=== PATIENT | female | born 1980 | race Caucasian/White ===

== ENCOUNTER 2023-12-15 15:30 | Emergency (ER) | payer BC ==
[2023-12-15] MEDS: Sodium Chloride 0.9% 1,000 ML IV STA (16:04)
[2023-12-15] MEDS: Promethazine 25 MG/ML SDV IM STA (16:04)
[2023-12-15] MEDS: Ketorolac 30 MG/ML SDV IVPUSH STA (16:04)
[2023-12-15 16:22] LABS: BASOPHILS ABSOLUTE AUTO 0.07 K/uL (0.00-0.20); BASOPHILS PERCENT AUTO 0.5 % (0.0-1.0); EOSINOPHILS ABSOLUTE AUTO 0.24 K/uL (0.00-0.45); EOSINOPHILS PERCENT AUTO 1.6 % (0.0-6.0); HEMATOCRIT 38.5 % (37.0-47.0); HEMOGLOBIN 12.9 g/dL (12.0-16.0); IMMATURE GRAN ABSOLUTE AUTO 0.06 K/uL (0.00-0.05); IMMATURE GRAN PERCENT AUTO 0.4 % (0.0-0.4); LYMPHOCYTES ABSOLUTE AUTO 1.34 K/uL (1.00-4.80); LYMPHOCYTES PERCENT AUTO 8.7 % (24.0-44.0); MEAN CORPUSCULAR HEMOGLOBIN 27.4 pg (28.0-32.0); MEAN CORPUSCULAR HGB CONC 33.5 g/dL (32.0-36.0); MEAN CORPUSCULAR VOLUME 81.7 fL (83.0-99.0); MEAN PLATELET VOLUME 10.3 fL (9.4-12.3); MONOCYTES ABSOLUTE AUTO 0.96 K/uL (0.00-0.80); MONOCYTES PERCENT AUTO 6.2 % (0.0-8.0); NEUTROPHILS PERCENT AUTO 82.6 % (41.0-71.0); PLATELET COUNT,PLT 368 K/uL (150-400); RED BLOOD CELL COUNT 4.71 M/uL (4.10-5.30); WHITE BLOOD CELL COUNT,WBC 15.47 K/uL (3.9-11.3)
[2023-12-15 16:35] LABS: INR 1.04 (0.86-1.11)
[2023-12-15 16:48] LABS: BILIRUBIN TOTAL 0.7 mg/dL (0.2-1.0); CALCIUM 9.4 mg/dL (8.5-10.1); CARBON DIOXIDE,CO2 23.5 mmol/L (21.0-32.0); CREATININE 0.8 mg/dL (0.6-1.0); EST CRCL DRUG DOSING (CG) 88.18 mL/min; POTASSIUM,K 4.2 mmol/L (3.5-5.1); PROTEIN TOTAL,TP 8.2 g/dL (6.4-8.2)
[2023-12-15 16:53] LABS: MAGNESIUM 1.7 mg/dL (1.8-2.4)
[2023-12-15] MEDS: Ondansetron 4 MG/2 ML SDV IVPUSH STA (17:03)
[2023-12-15] MEDS: Alum Hydro/Mag Hydro/Simeth XS 15 ML, Lidocaine 2% 5 ML PO STA (17:03)
== END 2023-12-15 17:50 | disposition home or self-care (01) ==
LOC: MW.ED 15:30
DX: K21.9 Gastro-esophageal reflux disease without esophagitis (principal); Z75.8 Other problems related to medical facilities and other health care; Z91.048 Other nonmedicinal substance allergy status; Z79.899 Other long term (current) drug therapy
CPT/HCPCS: 36415; 71046; 80053; 83690; 83735; 84484; 84703; 85025; 85610; 93005; 96361; 96372; 96374; 96375; 99285; A9270; J1885; J2405; J2550; J7030; 93010; 99284

== ENCOUNTER 2023-12-18 07:29 | Emergency (ER) | payer BC ==
[2023-12-18 07:53] LABS: BASOPHILS ABSOLUTE AUTO 0.08 K/uL (0.00-0.20); BASOPHILS PERCENT AUTO 0.5 % (0.0-1.0); EOSINOPHILS ABSOLUTE AUTO 0.35 K/uL (0.00-0.45); EOSINOPHILS PERCENT AUTO 2.3 % (0.0-6.0); HEMOGLOBIN 12.8 g/dL (12.0-16.0); IMMATURE GRAN ABSOLUTE AUTO 0.05 K/uL (0.00-0.05); IMMATURE GRAN PERCENT AUTO 0.3 % (0.0-0.4); LYMPHOCYTES ABSOLUTE AUTO 1.51 K/uL (1.00-4.80); LYMPHOCYTES PERCENT AUTO 9.9 % (24.0-44.0); MEAN CORPUSCULAR HEMOGLOBIN 27.2 pg (28.0-32.0); MEAN CORPUSCULAR HGB CONC 33.7 g/dL (32.0-36.0); MEAN CORPUSCULAR VOLUME 80.9 fL (83.0-99.0); MEAN PLATELET VOLUME 9.8 fL (9.4-12.3); MONOCYTES ABSOLUTE AUTO 1.12 K/uL (0.00-0.80); MONOCYTES PERCENT AUTO 7.3 % (0.0-8.0); NEUTROPHILS ABSOLUTE AUTO 12.14 K/uL (1.80-7.70); NEUTROPHILS PERCENT AUTO 79.7 % (41.0-71.0); PLATELET COUNT,PLT 344 K/uL (150-400); WHITE BLOOD CELL COUNT,WBC 15.25 K/uL (3.9-11.3)
[2023-12-18] MEDS: Sodium Chloride 0.9% 1,000 ML IV ONE (07:53)
[2023-12-18] MEDS: Sodium Chloride 0.9% 2.5 ML Syringe FLUSH PRN (07:54)
[2023-12-18] MEDS: Ondansetron 4 MG/2 ML SDV IVPUSH ONE ×2 (07:54→09:08)
[2023-12-18] MEDS: Sodium Chloride 0.9% 10 ML Syringe FLUSH PRN (07:54)
[2023-12-18] MEDS: Famotidine 20 MG/2 ML SDV IVPUSH ONE (07:54)
[2023-12-18 08:19] LABS: A/G RATIO 0.8 (0.9-1.6); ALBUMIN 3.6 g/dL (3.4-5.0); BILIRUBIN TOTAL 1.2 mg/dL (0.2-1.0); CALCIUM 8.7 mg/dL (8.5-10.1); CARBON DIOXIDE,CO2 25.1 mmol/L (21.0-32.0); CREATININE 0.8 mg/dL (0.6-1.0); EST CRCL DRUG DOSING (CG) 88.18 mL/min; MAGNESIUM 1.8 mg/dL (1.8-2.4); PROTEIN TOTAL,TP 8.3 g/dL (6.4-8.2)
[2023-12-18] MEDS: Iopamidol 755 MG/ML 500 ML Multipack Bottle IVPUSH STA (08:44)
[2023-12-18] MEDS: Piperacillin/Tazobactam 4.5 GM in Sodium Chloride 0.9% 100 ML IV ONE (10:07)
[2023-12-18] MEDS: droPERidol 5 MG/2 ML SDV IVPUSH ONE (10:55)
[2023-12-18] MEDS: Gadobenate Dimeglumine 529 MG/ML 20 ML SDV IVPUSH STA (13:25)
== END 2023-12-18 14:41 | disposition home or self-care (01) ==
LOC: MW.ED 07:29
DX: K81.0 Acute cholecystitis (principal); K21.9 Gastro-esophageal reflux disease without esophagitis; Z91.018 Allergy to other foods; Z79.899 Other long term (current) drug therapy
CPT/HCPCS: 36415; 74177; 74183; 76705; 80053; 83690; 83735; 84484; 84703; 85025; 93005; 96361; 96365; 96375; 96376; 99284; A9577; J1790; J2405; J2543; J3490; J7030; Q9967; 93010